=== PATIENT | male | born 2000 | race Caucasian/White ===

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

== ENCOUNTER 2023-02-08 20:33 | Emergency (ER) | payer BC ==
[2023-02-08 20:43] VITALS: TEMP 97.7
[2023-02-08] MEDS ORDERED: NITROGLYCERIN SL TABS 0.4 MG TAB SUBLINGUAL STA (21:03)
[2023-02-08 21:38] LABS: Basophils % (A) 1 %; Eosinophils # (A) 0.1 k/uL (0-0.7); Eosinophils % (A) 1 %; HCT 47.1 % (39.0-53.0); Lymphocytes # (A) 2.5 k/uL (1.0-4.8); Lymphocytes % (A) 28 %; MCH 29.7 pg (25.0-35.0); MCHC 33.9 g/dL (31.0-37.0); MCV 87.5 fL (80.0-100.0); Mean Platelet Volume 7.8; Monocytes # (A) 0.5 k/uL (0-1.0); Monocytes % (A) 6 %; Neutrophils # (A) 5.5 k/uL (1.3-7.7); Neutrophils % (A) 62 %; Platelet Count 273 k/uL (150-450); RBC 5.38 m/uL (4.30-5.90); RDW 12.6 % (11.5-15.5); WBC 8.9 k/uL (4.0-11.0)
--- NOTE | 2023-02-08 21:38 | XR ---
EXAMINATION TYPE: XR chest 2V DATE OF EXAM: 02/08/2023 COMPARISON: NONE HISTORY: Chest pain TECHNIQUE: Frontal and lateral views of the chest are obtained. FINDINGS: There is no focal air space opacity. No evidence for pneumothorax. No pleural effusion. The cardiac silhouette size is within normal limits. The osseous structures are grossly intact. IMPRESSION: 1. No acute cardiopulmonary process.
--- NOTE | 2023-02-08 21:44 | ED ---
Chest Pain HPI - General Source: patient, RN notes reviewed Mode of arrival: ambulatory Limitations: no limitations - History of Present Illness MD Complaint: chest pain Onset: during rest <Keena Cuello - Last Filed: 02/09/23 01:02> <Ricardo Menchaca - Last Filed: 02/09/23 01:18> - General Chief Complaint: Chest Pain Stated Complaint: tightness in chest, heart pain Time Seen by Provider: 02/08/23 20:49 - History of Present Illness Initial Comments: This is a 22-year-old male who presents to the emergency department for chest pain and tightness. He has had problems with chest pain for many years. Several years ago when he was in high school, he had cardiac testing at [facility] and states that he was diagnosed with second-degree heart block. The chest pain did start to gradually resolve, however over the last few months, the chest pain has started to worsen again. He had a Holter monitor a couple of weeks ago and was told that this was normal. He presented to the emergency department today, because when he was sitting down and watching TV tonight, the pain and tightness became worse than it had ever been. He also had tingling in the fingertips of his right hand which has never happened before. He also reports a family history of cardiomyopathy in his father. Denies any shortness of breath. Denies any fevers, chills, sore throat, cough, dyspnea, palpitations, abdominal pain, nausea, vomiting, diarrhea, back pain, or headaches. (Keena Cuello) - Related Data Home Medications Medication Instructions Recorded Confirmed No Known Home Medications 02/08/23 02/08/23 Allergies Allergy/AdvReac Type Severity Reaction Status Date / Time No Known Allergies Allergy Verified 02/08/23 21:19 Review of Systems ROS Other: All systems not noted in ROS Statement are negative. <Keena Cuello - Last Filed: 02/09/23 01:02> ROS Other: All systems not noted in ROS Statement are negative. <Ricardo Menchaca - Last Filed: 02/09/23 01:18> ROS Statement: Those systems with pertinent positive or pertinent negative responses have been documented in the HPI. Past Medical History Additional Past Medical History / Comment(s): 2nd heart block History of Any Multi-Drug Resistant Organisms: None Reported Past Surgical History: Tonsillectomy Additional Past Surgical History / Comment(s): sinus surgery Past Psychological History: No Psychological Hx Reported Smoking Status: Never smoker Past Alcohol Use History: Occasional Past Drug Use History: None Reported <Keena Cuello - Last Filed: 02/09/23 01:02> General Exam Limitations: no limitations General appearance: alert, in no apparent distress Head exam: Present: atraumatic, normocephalic, normal inspection Respiratory exam: Present: normal lung sounds bilaterally. Absent: respiratory distress, wheezes, rales, rhonchi, stridor, chest wall tenderness Cardiovascular Exam: Present: regular rate, normal rhythm, normal heart sounds. Absent: systolic murmur, diastolic murmur, rubs, gallop, clicks Neurological exam: Present: alert, oriented X3, CN II-XII intact Psychiatric exam: Present: normal affect, normal mood Skin exam: Present: warm, dry, intact, normal color. Absent: rash <Keena Cuello - Last Filed: 02/09/23 01:02> Course Vital Signs 02/08/23 02/08/23 02/08/23 20:39 21:30 22:00 Temperature 97.7 F Pulse Rate 98 111 H 82 Respiratory 18 12 12 Rate Blood Pressure 141/92 118/82 113/76 O2 Sat by Pulse 96 94 L 96 Oximetry 02/08/23 02/08/23 02/08/23 22:30 23:00 23:30 Temperature Pulse Rate 81 81 72 Respiratory 16 14 12 Rate Blood Pressure 129/77 100/72 125/75 O2 Sat by Pulse 95 94 L 95 Oximetry 02/09/23 00:52 Temperature Pulse Rate 82 Respiratory 18 Rate Blood Pressure 102/79 O2 Sat by Pulse 98 Oximetry Chest Pain MDM <Keena Cuello - Last Filed: 02/09/23 01:02> <Ricardo Menchaca - Last Filed: 02/09/23 01:18> - MDM This is a 22-year-old male who presents to the emergency department for chest pain. Was pt. sent in by a medical professional or institution? @ -No Did you speak to anyone other than the patient for history? @ -No Did you review nursing and triage notes? @ -Yes, and I agree, it is accurate with regards to the patient's symptoms. Were old charts reviewed? @ -No Differential Diagnosis? @ -Differential Chest Pain: Stable Angina, Unstable Angina, STEMI, NSTEMI Aortic Dissection, Pneumothorax, Musculoskeletal, Esophageal Spasm GERD, Cholecystitis, Pancreatitis, Zoster, this is not meant to be an all-inclusive list. EKG interpreted by me (3pts min.)? @ -EKG interpreted by me demonstrating the following: Sinus rhythm. Ventricular rate 91 bpm, NM interval 155 ms, QRS duration 90 ms, QTC 390 ms. X-rays interpreted by me (1pt min.)? @ -Chest x-ray obtained, my interpretation identifies no localized consolidations or infiltrates. CT interpreted by me (1pt min.)? @ -Not obtained U/S interpreted by me (1pt. min.)? @ -Not obtained What testing was considered but not performed? (CT, X-rays, U/S, labs)? Why? @ -None What meds were considered but not given? Why? @ -None Did you discuss the management of the patient with other professionals? @ -Yes, Dr. Serrano, who declines admission. Did you reconcile home meds? @ -No Was smoking cessation discussed for >3mins.? @ -No Was critical care preformed (if so, how long)? @ -No Were there social determinants of health that impacted care today? How? ( Homelessness, low income, unemployed, alcoholism, drug addiction, transportation, low edu. Level, literacy, decrease access to med. care, custodial, rehab)? @ -No Was there de-escalation of care discussed even if they declined? (Discuss DNR or withdrawal of care, Hospice)? @ -No What co-morbidities impacted this encounter? (DM, HTN, Smoking, COPD, CAD, Cancer, CVA, Hep., AIDS, mental health diagnosis, sleep apnea, morbid obesity)? @ -None Was patient admitted / discharged? @ -Discharged. Lab work obtained and found to be nonactionable. Chest x-ray reveals no acute process. He was given nitroglycerin, which essentially resolved the chest pain/tightness. Prior to the nitroglycerin, his pain was a 7- 8/10. We had wanted to admit the patient for observation due to the history of secondary heart block and resolution of symptoms with nitroglycerin. However, the admitting team did not feel that this was an appropriate admission due to his age and heart score (about 2) and subsequently declined the admission. We then obtained a second troponin, which was found to be negative, and the patient was discharged home. Information for cardiology follow-up provided. He is instructed to contact them in the morning for a follow-up appointment. Undiagnosed new problem with uncertain prognosis? @ -None Drug Therapy requiring intensive monitoring for toxicity (Heparin, Nitro, Insulin, Cardizem)? @ -None Were any procedures done? @ -None Diagnosis/symptom? @ -Chest pain Acute, or Chronic, or Acute on Chronic? @ -Acute Uncomplicated (without systemic symptoms) or Complicated (systemic symptoms)? @ -Uncomplicated Side effects of treatment? @ -None Exacerbation, Progression, or Severe Exacerbation] @ -Not applicable Poses a threat to life or bodily function? @ -This will depend on the cause of his chest pain, which is not entirely clear right now. Return precautions reviewed in depth, the patient is instructed to return to the emergency department with any new, worsening, or concerning symptoms. Patient verbalized understanding. This case was discussed in detail with the attending ED physician, Dr. Menchaca. Presentation, findings, and treatment plan discussed in detail as well. (Keena Cuello) Discussed the case with Dr. Serrano, and as patient was borderline in terms of admission and was in agreement that we will instead obtain secondary troponin discharged home if undetected. I do believe this was a reasonable course of action. (Ricardo Menchaca) Disposition Is patient prescribed a controlled substance at d/c from ED?: No <Keena Cuello - Last Filed: 02/09/23 01:02> <Ricardo Menchaca - Last Filed: 02/09/23 01:18> Clinical Impression: Chest pain Disposition: HOME SELF-CARE Instructions (If sedation given, give patient instructions): Chest Pain (ED) Additional Instructions: Return to the emergency department with any new, worsening, or concerning symptoms. Follow up with your primary care provider in 1-2 days. Contact cardiology as listed below for a follow-up appointment and reevaluation of ongoing symptoms. Referrals: Delmer Torres MD [Primary Care Provider] - 1-2 days Chito Hernandez MD [STAFF PHYSICIAN] - 1-2 days
[2023-02-08 21:55] LABS: INR 0.9 (<1.2); Partial Thromboplastin Time 27.1 sec (22.0-30.0); Prothrombin Time 10.1 sec (9.0-12.0)
[2023-02-08 21:56] LABS: ALT 24 U/L (4-49); AST 29 U/L (17-59); African American GFR (CKD) >90 (>60 ml/min/1.73 sqM); Albumin 4.9 g/dL (3.5-5.0); Alkaline Phosphatase 55 U/L (38-126); Anion Gap 11 mmol/L; Blood Urea Nitrogen 19 mg/dL (9-20); Calcium 9.6 mg/dL (8.4-10.2); Carbon Dioxide 25 mmol/L (22-30); Chloride 104 mmol/L (98-107); Glucose 101 mg/dL (74-99); Magnesium 1.9 mg/dL (1.6-2.3); Non-African American GFR(CKD) >90 (>60 ml/min/1.73 sqM); Sodium 140 mmol/L (137-145); Total Bilirubin 0.5 mg/dL (0.2-1.3); Total Protein 7.9 g/dL (6.3-8.2)
[2023-02-09 00:52] VITALS: BP 102/79; PULSE 82; RESP 18
== END 2023-02-09 00:53 | disposition home or self-care (01) ==
LOC: EC 20:33
DX: R07.89 Other chest pain (principal)
CPT/HCPCS: 36415; 71046; 80053; 83735; 84484; 85025; 85379; 85610; 85730; 93005; 99285